=== PATIENT | female | born 1970 | race Two or more races ===

== ENCOUNTER 2021-04-06 14:17 | Emergency (ER) | payer MEDICAID, OTHER ==
[~2021-04-06] VITALS: Ht 170.2 cm; Wt 106.1 kg
[2021-04-06 14:29] VITALS: BP 144/81
[2021-04-06] MEDS ORDERED: TETRACAINE HCL 0.5% OPTH(EYE) SOLN 4ML EACHEYE ONE (15:45)
[2021-04-06] MEDS ORDERED: FLUORESCEIN SOD OPTH TEST STRIP OP ONE (15:45)
== END 2021-04-06 16:59 | disposition home or self-care (01) ==
LOC: ER 14:17
DX: S05.01XA Injury of conjunctiva and corneal abrasion without foreign body, right eye, initial encounter (principal); T59.891A Toxic effect of other specified gases, fumes and vapors, accidental (unintentional), initial encounter; I10 Essential (primary) hypertension; Z88.8 Allergy status to other drugs, medicaments and biological substances; X58.XXXA Exposure to other specified factors, initial encounter; Y93.89 Activity, other specified; Y92.89 Other specified places as the place of occurrence of the external cause; Y99.8 Other external cause status